=== PATIENT | female | born 1990 | race American Indian/Alaskan Native ===

== ENCOUNTER 2016-07-12 23:40 | Emergency (ER) | payer SELFPAY ==
[2016-07-13 00:40] VITALS: BP 105/64
[2016-07-13] MEDS ORDERED: MOTRIN PO ONE (00:41)
== END 2016-07-13 03:30 | disposition left against medical advice (07) ==
LOC: ED 23:40
DX: M79.605 Pain in left leg (principal); M54.5 Low back pain; Z88.0 Allergy status to penicillin; Z53.21 Procedure and treatment not carried out due to patient leaving prior to being seen by health care provider